=== PATIENT | female | born 1945 | race American Indian/Alaskan Native ===

== ENCOUNTER 2017-06-01 08:19 | Outpatient (CLI) | payer MEDICARE ==
--- NOTE | 2017-06-01 14:06 | Mammography Report ---
BILATERAL DIGITAL SCREENING MAMMOGRAM with CAD : 06/01/17 08:19:00 CLINICAL: Routine screening. COMPARISON:03/16/16 FINDINGS: The breasts are heterogeneously dense, which may obscure small masses.Scattered bilateral calcifications with benign morphology are stable. However, a new group of right upper outer calcifications requires additional imaging. Left upper biopsy clip. No mass or architectural distortion. IMPRESSION: Right calcifications requiring additional imaging. BI-RADS CATEGORY: 0--Needs Additional Imaging RECOMMENDATION: Recall for right ML and ML and CC magnification views.
--- NOTE | 2017-06-01 14:08 | Mammography Report ---
BONE DEXA:06/01/17 08:19:00 CLINICAL: Postmenopausal and history of steroid use. No comparison. TECHNIQUE: Two site bone DEXA performed on an Hologic scanner. FINDINGS: The average BMD of the lumbar spine L1-L3 is 0.95g/cm squared with a T-score of -1.2 and a Z-score of -1.0. The L4 vertebral body was excluded as an ally because of endplate sclerosis at L4-5. The average BMD of the left hip is 0.820g/cm squared with a T-score of -2.1 and a Z-score of -0.7. The left femoral neck BMD is 0.656g/cm squared with a T score of -2.1 and Z score of -0.7. IMPRESSION: WHO classification: Osteopenia with increased fracture risk based on spine and left femoral neck measurements. RECOMMENDATION: Clinical correlation and routine screening. DEFINITIONS: BMD = Bone Mineral Density T-score = BMD related to mean peak bone mass of young adult (mean expressed in Standard Deviation) Z-score = Age matched BMD expressed in SD World Health Organization (WHO) Diagnostic Criteria Normal T-score > -1 SD Osteopenia T-score between -1 and -2.4 SD Osteoporosis T-score -2.5 SD or below NOTE: BMD is not the only risk factor for fracture. One should also consider factors such as the patient's age, risk of falling, previous osteoporotic fracture, family history of osteoporotic fractures, current smoker, and low body weight. Z-scores are not calculated if >80 years of age.
== END 2017-06-01 08:20 | disposition home or self-care (01) ==
LOC: SPVWC 08:19
PROVIDERS: ATTEND Internal Medicine
DX: Z12.31 Encounter for screening mammogram for malignant neoplasm of breast (principal); M85.88 Other specified disorders of bone density and structure, other site; Z78.0 Asymptomatic menopausal state; Z79.52 Long term (current) use of systemic steroids
CPT/HCPCS: 77080; G0202; 77067

== ENCOUNTER 2019-03-22 08:29 | Outpatient (CLI) | payer MEDICARE ==
--- NOTE | 2019-03-22 10:33 | Mammography Report ---
DIGITAL SCREENING MAMMOGRAM WITH CAD, 03/22/2019 INDICATION: Routine screening mammography. TECHNIQUE: Digital bilateral 2D mammography was obtained in the craniocaudal and mediolateral obliq ue projections. This examination was interpreted with the benefit of Computer-Aided Detection analysi s. COMPARISON: 03/06/2015, 03/16/2016 FINDINGS: Breast Density: There are scattered areas of fibroglandular density. There is no evidence of dominant mass, suspicious calcifications or architectural distortion in eithe r breast. Multiple benign scattered calcifications are noted bilaterally, unchanged. There is a biops y clip in the superior left breast. Overall, no interval change. IMPRESSION: No evidence of malignancy. BI-RADS Category 2: Benign. No mammographic evidence of malignancy. Recommend routine screening ma mmography in one year. A "normal" or negative report should not discourage follow up or biopsy of a clinically significant f inding. A written summary of these findings will be mailed to the patient. The patient will be entered into a mammography reporting system which will generate a reminder letter for the patient's next appointmen t at the appropriate interval. The [employer] recommends yearly mammograms starting at age 40 and continuing as l glenna as a woman is in good health. Breast MRI is recommended for women with an approximate 20-25% or greater lifetime risk of breast cancer, including women with a strong family history of breast or ova azeem cancer or who have been treated for Hodgkin's disease. Signer Name: Svetlana Abbott MD Signed: 03/22/2019 10:29 AM Workstation Name: [id number]
== END 2019-03-22 08:30 | disposition home or self-care (01) ==
LOC: SPVWC 08:29
PROVIDERS: ATTEND Internal Medicine
DX: Z12.31 Encounter for screening mammogram for malignant neoplasm of breast (principal)
CPT/HCPCS: 77067